=== PATIENT | female | born 1965 | race African-American/Black ===

== ENCOUNTER 2017-05-30 13:22 | Observation (INO) | payer SELFPAY ==
--- NOTE | 2017-05-30 14:24 | RAD ---
PORTABLE AP CHEST X-RAY 05/30/2017 HISTORY: Right shoulder pain radiating into right arm. COMPARISON: None available. FINDINGS: Cardiac silhouette and pulmonary vasculature are within normal limits. Lungs are clear. Osseous st ructures are intact. IMPRESSION: No acute cardiopulmonary process. POS: [facility]
[2017-05-30 14:45] LABS: #Basophils 0.1 thou/uL (0.0-0.2); #Eosinphils 0.1 thou/uL (0.0-0.7); #Lymphocytes 1.8 thou/uL (1.20-3.40); #Monocytes 0.3 thou/uL (0.11-0.59); #Neutrophils 3.5 thou/uL (1.40-6.50); %Basophils 2.3 % (0.0-1.0); %Monocytes 4.6 % (0.0-10.0); Hematocrit 40.9 % (36.0-47.0); Mean Platelet Volume 7.5 fL (7.4-10.4); Red Blood Cell (RBC) Count 4.19 mill/uL (4.20-5.40); White Blood Cell (WBC) Count 5.8 thou/uL (4.8-10.8)
[2017-05-30 15:08] LABS: ALT (SGPT) 30 U/L (8-55); AST (SGOT) 24 U/L (5-34); Alkaline Phosphatase 72 U/L (40-150); Anion Gap 11 mmol/L (10-20); BUN (Urea Nitrogen) 12 mg/dL (9.8-20.1); Bilirubin, Total 0.3 mg/dL (0.2-1.2); CK (CPK) 86 U/L (29-168); Calc. Creatinine Clearance 0 mL/min (70-130); Calcium 9.3 mg/dL (7.8-10.44); Carbon Dioxide 28 mmol/L (22-29); Chloride 106 mmol/L (98-107); Estimated GFR-MDRD Greater than 90; Globulin 3.2 g/dL (2.4-3.5); Lipase 27 U/L (8-78); Protein, Total 7.1 g/dL (6.0-8.3)
--- NOTE | 2017-05-30 15:08 | RAD ---
THREE VIEWS OF THE RIGHT SHOULDER 05/30/2017 COMPARISON: None. HISTORY: Pain. FINDINGS: There are a few subcentimeter well-defined lucencies overlying the scapula inferior to the coracoid, likely representing prominent vascular foramina. There is no widening of the acromioclavicular or coracoclavicular interspace. There is no displaced fracture or evidence of dislocation seen. There is a lucent area involving the inferior aspect of the glenoid, measuring in the 8 mm range, bass spicious for an area of degenerative subchondral cystic formation. IMPRESSION: No acute osseous abnormality. Probable subchondral cystic change of the glenoid. Given history of chronic right shoulder pain, non-emergent follow-up shoulder MRI advised. Code T. POS: [facility]
[2017-05-30 15:13] LABS: Troponin I Less than 0.010 ng/mL (< 0.028)
[2017-05-30] MEDS ORDERED: Iopamidol 370 76% 100 ML VIAL ONE (15:43)
[2017-05-30] MEDS ORDERED: Nitroglycerin 2% Ointment 1 INCH/1 GM Packet ONE (16:21)
[2017-05-30] MEDS ORDERED: Nitroglycerin 0.4 MG TAB (25 Tab Bottle) ONE (16:23)
--- NOTE | 2017-05-30 16:39 | CT ---
CT ANGIOGRAM THORAX WITH IV CONTRAST AND 3D RECONSTRUCTIONS: Date: 05-30-17 History: Several months of intermittent midsternal chest pain with pain radiating to right arm. Comparison: None. FINDINGS: No filling defects are seen in the pulmonary arteries to suggest a pulmonary embolus. Thoracic aorta is normal in caliber without evidence of an aortic dissection. Lungs are clear. Visualized upper abdomen has a grossly normal CT appearance for arterial phased imaging. Low density areas are seen in the retroareolar regions bilaterally, which may be related to inversio n of the patient's nipple. IMPRESSION: 1. No CT evidence of pulmonary embolus. 2. Findings likely attributable to inversion of the patient's nipples bilaterally as opposed to retr oareolar masses. Clinical correlation is recommended. POS: [facility]
[2017-05-30] MEDS ORDERED: Enoxaparin Sodium 100 MG/ML SYRINGE ONE (17:37)
[2017-05-30] MEDS ORDERED: Enoxaparin Sodium 80 MG/0.8 ML SYRINGE ONE (17:43)
--- NOTE | 2017-05-30 18:57 | HP ---
DATE OF ADMISSION: 05/30/2017 PRIMARY CARE PHYSICIAN: None. CHIEF COMPLAINT: Chest pain. HISTORY OF PRESENT ILLNESS: Ms. Kasper is a 51-year-old -[place] female with history of hype rtension, anxiety, and arthritis who has had ongoing history of several months of intermittent chest discomfort that seems to go up into her right shoulder. This episode is always a kind of a sharp p ain and seems to come and go based on her activity level. This current episode has been going on fo r about a week or so. The difference this time is yesterday she developed some numbness and tinglin g in her right hand and soreness running down her right arm. She has no shortness of breath. No co ld sweats or diaphoresis. No nausea or vomiting. No diarrhea or constipation. No cough or sputum production. Exacerbating factors include movement and repetitive motions. She stayed home yesterday, but did no t get better today, so decided to come into the Emergency Department for evaluation. She denies any other current complaints. PAST MEDICAL HISTORY: 1. Hypertension. 2. Anxiety with depression. 3. Degenerative joint disease. PAST SURGICAL HISTORY: Include, 1. x2. 2. Hysterectomy. HOME MEDICATIONS: 1. Amlodipine 5 mg daily. 2. Lisinopril 40 mg daily. 3. Aspirin 81 mg daily. 4. Ambien 10 mg p.o. at bedtime p.r.n. insomnia. 5. Flexeril 10 mg p.o. b.i.d. p.r.n. muscle spasm. 6. Meloxicam 50 mg p.o. q.a.m. ALLERGIES: NKDA. FAMILY HISTORY: Significant for cancers and hypertension. No premature coronary disease. No histo ry of clotting or bleeding disorder, no immune dysfunction. 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 She has negative habits x3. She lives at home with her 2 kids. REVIEW OF SYSTEMS: A 10-point review of systems was performed and negative for all other systems ex cept as stated as per HPI. PHYSICAL EXAMINATION: VITAL SIGNS: Temperature 98.2, pulse 69, blood pressure 130/86, respiratory 16, satting 96% on room air. GENERAL: She is awake. She is alert. She is oriented, is a well-developed, well-nourished female appears to be in no acute distress. HEENT: She is normocephalic and atraumatic. Pupils equal and reactive to light bilaterally, mucous membranes are moist. She has no visible lesions. No thrush. NECK: Supple, without lymphadenopathy, JVD, or thyromegaly. She has normal carotid upstrokes. The re are no bruits. LUNGS: Clear to auscultation bilaterally. She has no wheezes. No rales, no rhonchi, no prolonged expiratory phase. She has good air movement. Symmetrical chest excursion. CARDIOVASCULAR: Normal S1, S2. She has no murmurs. No rubs. ABDOMEN: Soft, nontender, nondistended, no masses, no organomegaly with no rebound, rigidity or gua rding. She has normoactive bowel sounds present in all 4 quadrants. EXTREMITIES: Show no cyanosis, no clubbing, no edema. She has 2+ peripheral pulses in all 4 of her extremities. SKIN: Warm, moist, and well perfused. She has no rashes, no lesions. MUSCULOSKELETAL: Normal to inspection. She has no inflamed joints and no palpable joint effusions. She does have crepitus of her bilateral shoulders, right more than left with passive range of jennifer on. NEUROLOGIC: Cranial nerves II-XII grossly intact without any focal neurologic deficits. DIAGNOSTIC DATA: EKG shows poor R-wave progression, but otherwise no ST-T changes and normal sinus rhythm. Chest x-ray showed no acute cardiopulmonary disease. A CT angiogram is negative for pulmonary embolus. LABORATORY DATA: Her CMP is normal. Potassium 4.8. Sodium 140, creatinine 0.73, glucose of 93. C K-MB 1.9, troponin I is undetectable. D-dimer barely elevated at 0.53. Liver function normal. CBC showed a white count of 5.8, hemoglobin 12.9, hematocrit of 40.9, platelet count of 268,000. ASSESSMENT AND PLAN: 1. Low risk chest pain. The patient has been having symptoms for months, was more persistent in th e last week and certainly in the last 24+ hours. She had negative biomarkers, no EKG changes. We w ill place her on observation, watch her on telemetry. We will get serial cardiac biomarkers, place her on cardioprotective medications and get a nuclear exercise stress test in the morning if her bio markers remain normal. 2. Hypertension, on amlodipine and lisinopril. We will continue with nitro paste and metoprolol as well temporarily. We will hold the baby aspirin and switch her to aspirin 325 mg daily. Aleve or Flexeril and Ambien p.r.n. as needed. The patient will be started on cardiac diet and made n.p.o. after midnight for stress test in the morning. If all is normal, we will send her home sylvia baptiste.
[2017-05-30] MEDS ORDERED: Acetaminophen 325 MG TAB PO PRN (19:06)
[2017-05-30] MEDS ORDERED: Ondansetron ODT 4 MG TAB PO PRN (19:06)
[2017-05-30] MEDS ORDERED: HYDROcodone/Acetaminophen 5/325 mg Tablet PO PRN (19:06)
[2017-05-30] MEDS ORDERED: HYDROcodone/Acetaminophen 10/325 mg Tablet PO PRN (19:06)
[2017-05-30 19:35] VITALS: BMI 32.1
[2017-05-30] MEDS ORDERED: Enoxaparin Sodium 40 MG/0.4 ML SYRINGE SC SCH (19:45)
[2017-05-30] MEDS: Famotidine 20 MG TAB PO SCH (19:53)
[2017-05-30] MEDS: Metoprolol Tartrate 25 MG TAB PO SCH (19:54)
[2017-05-30 20:01] LABS: Troponin I Less than 0.010 ng/mL (< 0.028)
[2017-05-30] MEDS: Nitroglycerin 2% Ointment 1 INCH/1 GM Packet TOP SCH (23:37)
[2017-05-31 03:48] LABS: Anion Gap 12 mmol/L (10-20); BUN (Urea Nitrogen) 12 mg/dL (9.8-20.1); Calc. Creatinine Clearance 118 mL/min (70-130); Carbon Dioxide 25 mmol/L (22-29); Chloride 107 mmol/L (98-107); Estimated GFR-MDRD Greater than 90
[2017-05-31 03:51] LABS: #Basophils 0.1 thou/uL (0.0-0.2); #Eosinphils 0.1 thou/uL (0.0-0.7); #Monocytes 0.4 thou/uL (0.11-0.59); #Neutrophils 2.9 thou/uL (1.40-6.50); %Basophils 1.6 % (0.0-1.0); %Eosinophils 1.3 % (0.0-10.0); %Lymphocytes 46.2 % (21.0-51.0); %Monocytes 5.9 % (0.0-10.0); Hematocrit 39.7 % (36.0-47.0); Mean Platelet Volume 7.6 fL (7.4-10.4); Red Blood Cell (RBC) Count 4.12 mill/uL (4.20-5.40); White Blood Cell (WBC) Count 6.5 thou/uL (4.8-10.8)
[2017-05-31 04:52] LABS: Troponin I Less than 0.010 ng/mL (< 0.028)
[2017-05-31] MEDS ORDERED: Aspirin 325 MG TAB PO SCH (08:00)
[2017-05-31] MEDS: Famotidine 20 MG TAB PO SCH (08:27)
[2017-05-31] MEDS: Nitroglycerin 2% Ointment 1 INCH/1 GM Packet TOP SCH ×2 (08:27→16:22)
[2017-05-31] MEDS: Metoprolol Tartrate 25 MG TAB PO SCH (08:28)
[2017-05-31] MEDS ORDERED: Amlodipine 5 MG TAB PO SCH (09:00)
[2017-05-31] MEDS ORDERED: Lisinopril 20 MG TAB PO SCH (09:00)
[2017-05-31 13:14] LABS: Troponin I Less than 0.010 ng/mL (< 0.028)
[2017-05-31 15:35] VITALS: BP 119/70; TEMP 98.5
[2017-05-31] MEDS ORDERED: ADENOSINE 60 MG/20 ML VIAL ONE (15:36)
--- NOTE | 2017-05-31 16:05 | NM ---
MYOCARDIAL PERFUSION STUDY: 05/31/17 HISTORY: Intermittent chest pain. RADIOPHARMACEUTICAL: 28 millicuries technetium 99m Sestamibi, IV at stress and 9 millicuries technetium 99m Sestamibi, IV at rest. MEDICATIONS: 15.3 mL (45.9 mg) Adenosine, IV. FINDINGS: There is relatively a fixed defect seen in the distal anterior left ventricular wall and at the apex . No reversible defect is identified. Gated images show very mild hypokinesis in the inferior wall. Normal ventricular wall thickening is present. Calculated left ventricular ejection fraction is 72%. IMPRESSION: Probably normal myocardial perfusion study without evidence of a reversible defect seen to suggest i schemia. There is a relatively fixed defect in the distal anterior wall which may be related to soft tissue attenuation as there is normal ventricular wall motion and thickening in this region. POS: [facility]
--- NOTE | 2017-05-31 17:48 | CON ---
HISTORY: The patient is a 51-year-old black female with history of hypertension , anxiety, and arthritis, who presented yesterday complaining of chest discomfort. She had 5 episodes on 05/29/2017 and when she got up to go to work on 05/30/2017 had another episode and decided to come to the emergency room. When she has this discomfort, she describes as a sharp pain in the center of her chest and at times she will have some right shoulder aching as well as numbness in her right hand. She does state that she has some right shoulder problems. She denies any excessive lifting or excessive physical activity. She denies any pleuritic component to the pain. She denies any shortness of breath, nausea, vomiting or diaphoresis with this. PAST MEDICAL HISTORY: Hypertension, arthritis, anxiety. OPERATIONS: and hysterectomy. MEDICATIONS: Amlodipine 5 daily, lisinopril 40 mg daily, aspirin 81 daily, Ambien 10 mg at bedtime p.r.n., Flexeril 10 mg b.i.d. p.r.n., Meloxicam 50 q.a.m. ALLERGIES: None. SOCIAL HISTORY: She does not smoke or drink. She is a nurse's aide at [employer]. FAMILY HISTORY: Negative for myocardial infarction, CABG or sudden . REVIEW OF SYSTEMS: Ten-point review of systems otherwise unremarkable. PHYSICAL EXAMINATION: VITAL SIGNS: Blood pressure 119/70, pulse of 83, sinus rhythm. HEENT: PERRL. NECK: Supple. CHEST: Clear. CARDIAC: S1 and S2 are normal, without any S3, S4 or murmurs. Carotid upstrokes are normal without bruits. ABDOMEN: Normal bowel sounds, without tenderness. EXTREMITIES: Reveal no clubbing, cyanosis or edema. NEUROLOGIC: Grossly intact. SKIN: Warm and dry. MUSCULOSKELETAL: Reveals palpable sternal tenderness which reproduces her pain. LABORATORY: EKG reveals normal sinus rhythm, possible left atrial enlargement and nonspecific anterior T changes. Chest CTA yesterday afternoon revealed no evidence of pulmonary embolism. She underwent adenosine Cardiolite testing today which revealed a fixed defect in the distal anterior wall and apex, but no reversible ischemia. There was evidence of normal wall motion and normal ventricular thickening in the anterior wall and overall this was felt to probably be a normal study. This is consistent with breast attenuation. LABORATORY DATA: Cardiac enzymes are totally normal. Electrolytes normal. Creatinine 0.73, BUN 12. Cholesterol 179, triglycerides 79, HDL 72, LDL 91. CBC is unremarkable. D-dimer 0.53. Urinalysis is normal. IMPRESSION: 1. Atypical chest pain most consistent with chest wall pain. Pain is sharp in nature. It is reproduced with palpation. 2. Unremarkable adenosine Cardiolite test except for breast attenuation. 3. Hypertension. 4. Arthritis. 5. Anxiety. PLAN: At the present time, I do not feel any further cardiac evaluation is warranted. We did discuss possible use of another type of anti-inflammatory such as Aleve 1 b.i.d. with food. She will follow up with her primary doctor who treats her arthritis. DAISY
--- NOTE | 2017-06-01 13:10 | DIS ---
DATE OF ADMISSION: 05/30/2017 DATE OF DISCHARGE: 05/31/2017 DISCHARGE DIAGNOSES: 1. Noncardiac chest pain. 2. Hypertension. CONSULTATIONS: Dr. Robert Davidson, Cardiology. PROCEDURES: Cardiolite stress test, 05/31/2017. Resulted as probably normal myocardial perfusion st udy without evidence of reversible defect to suggest ischemia, but there was a relatively fixed defec t in the distal anterior wall, which may be related to soft tissue attenuation or thickening. HISTORY AND PHYSICAL: Ms. Kasper is a 52-year-old female whom I admitted on 05/30/2017 to observation status for evaluation of chest pain. She presented to the emergency department with an intermittent history of several months of ongoing chest discomfort that seemed to go up into the right shoulder, worse with activity. She described it as a sharp pain that went up or down based on activity level. The current episode has been going on for about a week or so, but she developed a numbness and tingl ing in the right hand and soreness riding down the right arm, so subsequently admitted to us for furt her workup. HOSPITAL COURSE: The patient was seen and examined by me in the emergency department. Biomarkers we re unremarkable. Vital signs are relatively stable. She was placed in observation. Overnight, she had serial cardiac biomarkers that were unremarkable and no further chest pain. She underwent nuclear stress testing on the morning of 05/31/2017 and initially read as indeterminate . Dr. Robert Davidson from Cardiology was consulted, who saw her that evening. He thought it was mo st consistent with chest wall pain or shoulder pain. He does not feel any further cardiac evaluation was warranted and cleared for discharge with outpatient followup. PHYSICAL EXAMINATION: The patient was seen and examined on the day of discharge. Discharge plan and disposition were discussed with the patient [id number] at the bedside. DISCHARGE MEDICATIONS: 1. Amlodipine 10 mg daily. 2. Aspirin 81 mg daily. 3. Flexeril 10 mg p.o. b.i.d. p.r.n. muscle spasm. 4. Lisinopril 40 mg p.o. daily. 5. Meloxicam 15 mg p.o. at bedtime. 6. Ambien 10 mg p.o. at bedtime p.r.n. insomnia. 7. Ibuprofen 400 to 800 mg p.o. t.i.d. p.r.n. chest or joint pain. FOLLOWUP APPOINTMENTS: Primary care physician within a week. DISCHARGE CONDITION: Stable. DISPOSITION: Being discharged home via private vehicle. INSTRUCTIONS: Return to the emergency department if her chest pain changes or become worse or unrele ntable.
--- NOTE | 2017-06-15 13:26 | STRESS ---
Acquisition Time: 2017-05-31 11:16:16 Total Exercise Time: 00:04:00 Test Indications: CHEST PAIN Medications: Protocol: ADENOSINE Max HR: 116 BPM 68% of Pred: 169 BPM Max BP: 154/086 mmHG Max Work Load: 1.0 METS RESTING ECG: NORMAL SINUS RHYTHM AT 68 BPM WITH NON-SPECIFIC T-WAVE CHANGES SYMPTOMS: CHEST PAIN NORMAL BP RESPONSE ECTOPY: NONE ECG STRESS: NO SIGNIFICANT CHANGES INTERPRETATION: AWAIT NUCLEAR IMAGES FOR DEFINITIVE DIAGNOSIS Confirmed by LAQUITA DOWNING ([id number]), video tape editor ALLISON COLEMAN ([id number]) on 06/15/2017 1:26:25 PM Referred By: MD Qing COLE Confirmed By:LAQUITA DOWNING
== END 2017-05-31 17:55 | disposition home or self-care (01) ==
LOC: ERS 13:22 → 2SW 18:44
PROVIDERS: ADMIT Internal Medicine Infectious Disease; ATTEND Internal Medicine Infectious Disease
DX: R07.89 Other chest pain (principal); I10 Essential (primary) hypertension; M19.90 Unspecified osteoarthritis, unspecified site; F41.8 Other specified anxiety disorders; Z79.82 Long term (current) use of aspirin; Z79.899 Other long term (current) drug therapy; Z90.710 Acquired absence of both cervix and uterus; Z98.890 Other specified postprocedural states
CPT/HCPCS: 36415; 71010; 71275; 78452; 80048; 80053; 80061; 82550; 82553; 83690; 83880; 84484; 85025; 85379; 93005; 93017; 96372; A9500; G0378; J0153; J1650

== ENCOUNTER 2017-09-26 13:33 | Emergency (ER) | payer OTHER, SELFPAY ==
[2017-09-26] MEDS ORDERED: Ketorolac Tromethamine 30 MG/ML VIAL ONE (15:23)
== END 2017-09-26 15:45 | disposition home or self-care (01) ==
LOC: ERS 13:33
DX: M16.0 Bilateral primary osteoarthritis of hip (principal); I10 Essential (primary) hypertension; F41.9 Anxiety disorder, unspecified; F32.9 Major depressive disorder, single episode, unspecified
CPT/HCPCS: 96372; J1885

== ENCOUNTER 2018-05-25 12:25 | Emergency (ER) | payer OTHER, SELFPAY | END 2018-05-25 12:47 | disposition home or self-care (01) | LOC: ERS 12:25 | DX: L03.211 Cellulitis of face (principal); F41.9 Anxiety disorder, unspecified; F32.9 Major depressive disorder, single episode, unspecified | CPT/HCPCS: 99283 ==